=== PATIENT | male | born 1985 | race Caucasian/White ===

== ENCOUNTER 2021-03-20 15:16 | Inpatient (IN) | payer OTHER ==
[2021-03-20 18:06] LABS: Basophils # (A) 0.1 k/uL (0-0.2); Basophils % (A) 1 %; Eosinophils # (A) 0.2 k/uL (0-0.7); Eosinophils % (A) 2 %; HCT 45.9 % (39.0-53.0); HGB 15.5 gm/dL (13.0-17.5); Lymphocytes # (A) 2.1 k/uL (1.0-4.8); Lymphocytes % (A) 16 %; MCH 29.9 pg (25.0-35.0); MCHC 33.7 g/dL (31.0-37.0); MCV 88.7 fL (80.0-100.0); Mean Platelet Volume 7.7; Monocytes # (A) 0.7 k/uL (0-1.0); Monocytes % (A) 6 %; Neutrophils # (A) 9.7 k/uL (1.3-7.7); Neutrophils % (A) 74 %; Platelet Count 283 k/uL (150-450); RBC 5.17 m/uL (4.30-5.90); RDW 12.9 % (11.5-15.5)
[2021-03-20 18:13] LABS: ALT 89 U/L (4-49); AST 70 U/L (17-59); African American GFR (CKD) >90 (>60 ml/min/1.73 sqM); Albumin 3.8 g/dL (3.5-5.0); Alkaline Phosphatase 68 U/L (38-126); Anion Gap 11 mmol/L; Blood Urea Nitrogen 19 mg/dL (9-20); Calcium 8.9 mg/dL (8.4-10.2); Carbon Dioxide 23 mmol/L (22-30); Chloride 103 mmol/L (98-107); Glucose 135 mg/dL (74-99); Non-African American GFR(CKD) >90 (>60 ml/min/1.73 sqM); Potassium 4.3 mmol/L (3.5-5.1); Sodium 137 mmol/L (137-145); Total Bilirubin 0.7 mg/dL (0.2-1.3); Total Protein 6.5 g/dL (6.3-8.2)
[2021-03-20 18:31] LABS: Partial Thromboplastin Time 22.1 sec (22.0-30.0); Prothrombin Time 10.5 sec (9.0-12.0)
--- NOTE | 2021-03-20 20:14 | ED ---
General Adult HPI - General Chief complaint: Recheck/Abnormal Lab/Rx Stated complaint: Revisit/COVID+ Time Seen by Provider: 03/20/21 19:53 Source: patient Mode of arrival: ambulatory Limitations: no limitations - History of Present Illness Initial comments: Dictation was produced using [employer] dictation software. please excuse any grammatical, word or spelling errors. Chief Complaint: 36-year-old male sent in from primary care physician's office for hypoxia History of Present Illness: Patient is 36-year-old male here reports that 3 weeks ago he was diagnosed with colon. He ended up being admitted to the hospital in [place] for 5 days. He received multiple therapies. His discharge. Today he had his follow-up appointment with his primary care doctor Dr. Navarro. Dr. Navarro evaluated the patient is concerned that patient was still hypoxic. He was short of breath and hypoxic with the level 8780% on room air at home. Patie nt also complaining of left lower extremity pain. Patient denies any chest pain. Denies any fevers. Denies any palpitations. The ROS documented in this emergency department record has been reviewed and confirmed by me. Those systems with pertinent positive or negative responses have been documented in the HPI. All other systems are other negative and/or noncontributory. PHYSICAL EXAM: General Impression: Alert and oriented x3, not in acute distress HEENT: Normocephalic atraumatic, extra-ocular movements intact, pupils equal and reactive to light bilaterally, mucous membranes moist. Cardiovascular: Heart regular rate and rhythm Chest: Able to complete full sentences, no retractions, no tachypnea, lungs clear to auscultation bilaterally Abdomen: abdomen soft, non-tender, non-distended, no organomegaly Musculoskeletal: Pulses present and equal in all extremities, no peripheral edema, no significant swelling of the left mid calf. Compared to the right, mild left calf tenderness to palpation Motor: no focal deficits noted Neurological: CN II-XII grossly intact, no focal motor or sensory deficits noted Skin: Intact with no visualized rashes Psych: Normal affect and mood ED course: 36-year-old male presents to the emergency department from primary care physician's office for hypoxia. Patient required inpatient admission for coronavirus 3 weeks ago. Vital signs upon arrival shows temperature 100F, heart rate 120 cumbersome vital signs within acceptable limits. Is 94% on room air. Patient does not appear dyspneic.Laboratory evaluation obtained. Leukocytosis of 13.0. Coag panel is unremarkable. D-dimer is 1.44. Metabolic panel shows slightly elevated liver enzymes. coronavirus positive. Venous Doppler negative for DVT. Chest x-ray shows multifocal pneumonia. CT shows pneumonia and right-sided pulmonary embolisms. Patient started heparin given Zithromax. Patient be admitted with consultation to pulmonology. Patient's vital signs are stable. Is not hypotensive. Troponin is negative. Patient still tachycardic but not showing any signs of submassive PE. His blood pressure is normal. Reevaluated at bedside 11 PM vomited stable medical condition. Does not appear dyspneic. He is not hypoxic. Patient be admitted to Dr. Navarro with consultation to pulmonology. Patient started on heparin. Patient has elevated white count with concerns of atypical bacterial infection. Certain azithromycin. He is also given Decadron for Covid. EKG interpretation: Ventricular rate 123, sinus tachycardia,. Interval 134, QRS 82, QTC 475. No AR prolongation, no QTC prolongation, no ST or T-wave changes noted.. Overall, this EKG is unremarkable - Related Data Home Medications Medication Instructions Recorded Confirmed Albuterol Sulfate [Proair Hfa] 2 puff INHALATION RT-QID PRN 03/20/21 03/20/21 Ascorbic Acid [Vitamin C] 1,000 mg PO DAILY 03/20/21 03/20/21 Cholecalciferol (Vitamin D3) 125 mcg PO DAILY 03/20/21 03/20/21 [Vitamin D3 (125 MCG = 5,000 IU)] Vitamin B Complex 1 cap PO DAILY 03/20/21 03/20/21 Zinc 50 mg PO DAILY 03/20/21 03/20/21 Allergies Allergy/AdvReac Type Severity Reaction Status Date / Time No Known Allergies Allergy Verified 03/20/21 22:04 Review of Systems ROS Statement: Those systems with pertinent positive or pertinent negative responses have been documented in the HPI. ROS Other: All systems not noted in ROS Statement are negative. Past Medical History Additional Past Medical History / Comment(s): Covid, History of Any Multi-Drug Resistant Organisms: None Reported Past Surgical History: No Surgical Hx Reported Past Psychological History: No Psychological Hx Reported Smoking Status: Never smoker Past Alcohol Use History: Occasional Past Drug Use History: Marijuana General Exam Limitations: no limitations Course Vital Signs 03/20/21 16:50 Temperature 100 F H Pulse Rate 120 H Respiratory 22 Rate Blood Pressure 120/80 O2 Sat by Pulse 94 L Oximetry Medical Decision Making - Lab Data Result diagrams: 03/20/21 17:56 03/20/21 17:56 Lab Results 03/20/21 03/20/21 03/20/21 Range/Units 17:56 17:56 17:56 WBC 13.0 H (3.8-10.6) k/uL RBC 5.17 (4.30-5.90) m/uL Hgb 15.5 (13.0-17.5) gm/dL Hct 45.9 (39.0-53.0) % MCV 88.7 (80.0-100.0) fL MCH 29.9 (25.0-35.0) pg MCHC 33.7 (31.0-37.0) g/dL RDW 12.9 (11.5-15.5) % Plt Count 283 (150-450) k/uL MPV 7.7 Neutrophils % 74 % Lymphocytes % 16 % Monocytes % 6 % Eosinophils % 2 % Basophils % 1 % Neutrophils # 9.7 H (1.3-7.7) k/uL Lymphocytes # 2.1 (1.0-4.8) k/uL Monocytes # 0.7 (0-1.0) k/uL Eosinophils # 0.2 (0-0.7) k/uL Basophils # 0.1 (0-0.2) k/uL PT 10.5 (9.0-12.0) sec INR 1.0 (<1.2) APTT 22.1 (22.0-30.0) sec D-Dimer (<0.60) mg/L FEU Sodium 137 (137-145) mmol/L Potassium 4.3 (3.5-5.1) mmol/L Chloride 103 (98-107) mmol/L Carbon Dioxide 23 (22-30) mmol/L Anion Gap 11 mmol/L BUN 19 (9-20) mg/dL Creatinine 1.06 (0.66-1.25) mg/dL Est GFR (CKD-EPI)AfAm >90 (>60 ml/min/1.73 sqM) Est GFR (CKD-EPI)NonAf >90 (>60 ml/min/1.73 sqM) Glucose 135 H (74-99) mg/dL Calcium 8.9 (8.4-10.2) mg/dL Total Bilirubin 0.7 (0.2-1.3) mg/dL AST 70 H (17-59) U/L ALT 89 H (4-49) U/L Alkaline Phosphatase 68 (38-126) U/L Troponin I (0.000-0.034) ng/mL Total Protein 6.5 (6.3-8.2) g/dL Albumin 3.8 (3.5-5.0) g/dL Influenza Type A (PCR) (Not Detectd) Influenza Type B (PCR) (Not Detectd) RSV (PCR) (Not Detectd) SARS-CoV-2 (PCR) (Not Detectd) 03/20/21 03/20/21 03/20/21 Range/Units 17:56 19:54 21:54 WBC (3.8-10.6) k/uL RBC (4.30-5.90) m/uL Hgb (13.0-17.5) gm/dL Hct (39.0-53.0) % MCV (80.0-100.0) fL MCH (25.0-35.0) pg MCHC (31.0-37.0) g/dL RDW (11.5-15.5) % Plt Count (150-450) k/uL MPV Neutrophils % % Lymphocytes % % Monocytes % % Eosinophils % % Basophils % % Neutrophils # (1.3-7.7) k/uL Lymphocytes # (1.0-4.8) k/uL Monocytes # (0-1.0) k/uL Eosinophils # (0-0.7) k/uL Basophils # (0-0.2) k/uL PT (9.0-12.0) sec INR (<1.2) APTT (22.0-30.0) sec D-Dimer 1.44 H (<0.60) mg/L FEU Sodium (137-145) mmol/L Potassium (3.5-5.1) mmol/L Chloride (98-107) mmol/L Carbon Dioxide (22-30) mmol/L Anion Gap mmol/L BUN (9-20) mg/dL Creatinine (0.66-1.25) mg/dL Est GFR (CKD-EPI)AfAm (>60 ml/min/1.73 sqM) Est GFR (CKD-EPI)NonAf (>60 ml/min/1.73 sqM) Glucose (74-99) mg/dL Calcium (8.4-10.2) mg/dL Total Bilirubin (0.2-1.3) mg/dL AST (17-59) U/L ALT (4-49) U/L Alkaline Phosphatase (38-126) U/L Troponin I <0.012 (0.000-0.034) ng/mL Total Protein (6.3-8.2) g/dL Albumin (3.5-5.0) g/dL Influenza Type A (PCR) Not Detected (Not Detectd) Influenza Type B (PCR) Not Detected (Not Detectd) RSV (PCR) Not Detected (Not Detectd) SARS-CoV-2 (PCR) Detected A (Not Detectd) Critical Care Time Critical Care Time: Yes Total Critical Care Time: 33 Disposition Clinical Impression: COVID-19, Pulmonary embolism Disposition: ADMITTED IP TO THIS [facility] Condition: Fair Referrals: Barry Navarro MD [Primary Care Provider] - 1-2 days
--- NOTE | 2021-03-20 21:11 | XR ---
EXAMINATION TYPE: XR chest 1V portable DATE OF EXAM: 03/20/2021 COMPARISON: NONE HISTORY: Difficulty breathing. TECHNIQUE: Single frontal view of the chest is obtained. FINDINGS: Cardiomediastinal silhouette and pulmonary vasculature is within normal limits. There is reticular and patchy opacity bilaterally. No effusion or pneumothorax. IMPRESSION: Multifocal pneumonia. Edema less likely.
--- NOTE | 2021-03-20 21:26 | US ---
EXAMINATION TYPE: US venous doppler duplex LE RT DATE OF EXAM: 03/20/2021 8:57 PM COMPARISON: NONE CLINICAL HISTORY: calf swelling, suspect DVT. SIDE PERFORMED: Right TECHNIQUE: The lower extremity deep venous system is examined utilizing real time linear array sonog wayne with graded compression, doppler sonography and color-flow sonography. VESSELS IMAGED: Common Femoral Vein Deep Femoral Vein Greater Saphenous Vein * Femoral Vein Popliteal Vein Small Saphenous Vein * Proximal Calf Veins (* superficial vessels) Right Leg: Negative for DVT IMPRESSION: 1. No evidence of deep vein thrombosis in the right leg. 2. Grayscale, color doppler, spectral doppler imaging performed of the deep veins of the lower extre mities. There is normal flow, compressibility, vascular waveforms.
[2021-03-20] MEDS ORDERED: HEPARIN SODIUM 1,000 UN/ML (10ML VL) IV PRN (22:41)
[2021-03-20] MEDS ORDERED: HEPARIN SODIUM 1,000 UN/ML (10ML VL) IV ONE (22:41)
[2021-03-20] MEDS ORDERED: NALOXONE 0.4 MG/ML 1 ML VIAL IV PRN (22:46)
[2021-03-20] MEDS ORDERED: ONDANSETRON 4 MG/2 ML VIAL IVP PRN (22:46)
[2021-03-20] MEDS ORDERED: ACETAMINOPHEN TAB 325 MG TAB PO PRN (22:46)
[2021-03-20] MEDS ORDERED: DEXAMETHASONE SOD PHOSPHATE 10 MG/ML 1 ML VIAL IV STA (22:48)
[2021-03-20] MEDS ORDERED: AZITHROMYCIN 500 MG in SODIUM CHLORIDE 0.9% 250 ML IVPB STA (22:54)
--- NOTE | 2021-03-20 22:57 | CT ---
EXAMINATION TYPE: CT angio chest DATE OF EXAM: 03/20/2021 COMPARISON: None HISTORY: R/O PE CT DLP: 592.20 mGycm Automated exposure control for dose reduction was used. CONTRAST: Performed with IV Contrast, patient injected with 60 mL of Isovue 370. Images obtained from the thoracic inlet to the diaphragm with IV contrast. There are 3-D post process ed images. There is some patchy groundglass interstitial infiltrate throughout both lungs. Heart size is normal. There is no pericardial effusion. There is a few paratracheal lymph nodes measuring up to 1 cm. Ther e are no hilar masses. There are filling defects in the right pulmonary artery involving the right upper lobe and right lowe r lobe branches. I see no filling defect in the left pulmonary artery. Thoracic aorta is intact. There is no aneurysm or dissection. The ascending aorta measures 3.5 cm. Th e thoracic spine is intact. There is no compression fracture. Sternum is intact. There is some fatty infiltration of the liver. Spleen is enlarged and measures 15 cm. IMPRESSION: There are multiple emboli in the right upper lobe and right lower lobe pulmonary artery. Patchy bilateral pulmonary interstitial pneumonia. Mild splenomegaly. Fatty infiltration of the liver. This exam was discussed with Dr. Wyatt at 11:00 PM.
[2021-03-21] MEDS: HEPARIN SOD,PORK IN 0.45% NACL 25,000 UNIT in 0.45% NACL 1 250ML.BAG IV SCH ×3 (00:12→22:44)
[2021-03-21] MEDS: SODIUM CHLORIDE 0.9% 1,000 ML IV SCH ×2 (08:46→22:52)
[2021-03-21 11:01] LABS: Basophils # (A) 0.1 k/uL (0-0.2); Basophils % (A) 1 %; Eosinophils % (A) 0 %; HCT 43.7 % (39.0-53.0); HGB 14.6 gm/dL (13.0-17.5); Lymphocytes # (A) 0.9 k/uL (1.0-4.8); Lymphocytes % (A) 9 %; MCH 30.6 pg (25.0-35.0); MCHC 33.5 g/dL (31.0-37.0); MCV 91.4 fL (80.0-100.0); Monocytes # (A) 0.2 k/uL (0-1.0); Monocytes % (A) 2 %; Neutrophils # (A) 8.4 k/uL (1.3-7.7); Neutrophils % (A) 87 %; Platelet Count 242 k/uL (150-450); RBC 4.78 m/uL (4.30-5.90); RDW 12.8 % (11.5-15.5); WBC 9.7 k/uL (3.8-10.6)
[2021-03-21 11:24] LABS: AST 53 U/L (17-59); African American GFR (CKD) >90 (>60 ml/min/1.73 sqM); Albumin 3.6 g/dL (3.5-5.0); Alkaline Phosphatase 108 U/L (38-126); Anion Gap 14 mmol/L; Blood Urea Nitrogen 19 mg/dL (9-20); Calcium 8.8 mg/dL (8.4-10.2); Carbon Dioxide 18 mmol/L (22-30); Chloride 103 mmol/L (98-107); Glucose 355 mg/dL (74-99); Non-African American GFR(CKD) >90 (>60 ml/min/1.73 sqM); Potassium 5.1 mmol/L (3.5-5.1); Sodium 135 mmol/L (137-145); Total Bilirubin 0.5 mg/dL (0.2-1.3); Total Protein 6.3 g/dL (6.3-8.2)
[2021-03-21 11:42] LABS: ALT 86 U/L (4-49)
--- NOTE | 2021-03-21 12:01 | P.HPIM ---
History of Present Illness H&P Date: 03/21/21 Chief Complaint: Pulmonary embolism/COVID-19 HISTORY OF PRESENT ILLNESS: This is a 36-year-old male with no primary medical history he was hospitalized in [facility] for COVID-19 pneumonia and he was discharged on 04/11/2021 he was supposed to go back to work at [employer] however he showed up to my office yesterday in the afternoon for a clearance to go back to work hopefully on Tuesday however the patient was hypotensive extremely short of breath tachycardic twelve-lead EKG my office showed sinus tachycardia with hyperacute T waves in the anterior leads, his oxygen saturation was around 88% on room air, got worse with activity to 85%, patient was directed to the emergency department at [facility] I spoke with the ER physician alerted him to the patient condition and he is likely to have a pulmonary embolism due to his recent COVID-19 infection patient was seen in the ER 4 hours later and he had a twelve-lead EKG as well as laboratory evaluation and a CTA of the chest that was positive for multiple pulmonary emboli in the right upper lobes and the lower lobes, patient was started on heparin drip, he was admitted to the hospital for evaluation bipolar medicine, echogram was obtained for evaluation of fractured restrained pattern, patient continues to be positive for COVID-19, he was placed in droplet precautions with eye protection, patient was started also on vitamin D 1000 units once every day, vitamin C 500 mg orally twice every day and 6 sulfate 220 mg orally once every day was also started on Decadron 6 but gram IV push every day along with IV anabiotic in the form of Rocephin 1 g IV piggyback every 24 hours and Zithromax 500 mg IV piggyback every 24 hours. REVIEW OF SYSTEMS: Constitutional: No documented fever, no chills, no night sweats. No weight change. positive for weakness, fatigue or lethargy. No daytime sleepiness. HEENT: No headache. No blurred vision or double vision, no loss of vision. No loss of Hearing, no ringing in the ears, no dizziness. No nasal drainage or congestion. No epistaxis. No sore throat. Lungs: Positive for shortness of breath, occasional cough, no sputum production. No wheezing. Reports dyspnea with activity. Cardiovascular: No chest pain, no lower extremity edema. positive for palpitations. No paroxysmal nocturnal dyspnea. No orthopnea. positive for lightheadedness and for dizziness. No syncopal episodes. Abdominal: Reports abdominal pain. No nausea, vomiting. No diarrhea. No constipation. No bloody or tarry stools reports loss of appetite. Genitourinary: No dysuria, increased frequency, urgency. No urinary retention. Musculoskeletal: positive for myalgia in the right leg No muscle weakness, no gait dysfunction, no frequent falls. No back pain. No neck pain. Integumentary: No wounds, no lesions. No rash or pruritus. No unusual bruising . No change in hair or nails. Neurologic: No aphasia. No facial droop. No change in mentation. No head injury. No headache. No paralysis. No paresthesia. Psychiatric: No depression. No anxiety. No mood swings. Endocrine: No abnormal blood sugars. No weight change. PAST MEDICAL HISTORY: COVID-19. Sinus tachycardia. Dyspnea on exertion. Code pneumonia. PAST SURGICAL HISTORY: None. SOCIAL HISTORY: Patient used to smoke about pack every day he smoked for about 5 years and he quit he occasionally vape, patient workes at [employer]. FAMILY HISTORY: Mother 61-year-old with history of ovarian tumor status post total abdominal history bilateral salpingo-ophorrctomy as well as significant spondylosis of the lumbar spine and hypertension and hypertensive cardiovascular disease father is 61-year-old with history of diabetes mellitus type 2 hypertension and hyperlipidemia , he is a pharmacist, patient has one younger sister 30-year-old with a history of ovarian tumor status post surgery and try to get in vitro fertilization PHYSICAL EXAMINATION: General: This is a 36-year-old male who is laying down in bed in no respiratory distress. HEENT: Head is atraumatic, normocephalic, pupils were equal round reactive to light and recommendation, extraocular muscle movement were intact, sclera nonicteric, conjunctivae were pale, mucous membranes of the mouth are somewhat dry. Neck: Supple, no JVP, normal carotid upstroke bilaterally, no lymphadenopathy. Chest: Decreased breath sounds at the bases, few rhonchi, no expiratory wheezes, no chest wall tenderness, no intercostal retractions. Heart: First heart sound is normal, second heart sounds normal tachycardic no gallop or murmur. Abdomen: Soft, nontender, nondistended, positive bowel sounds. Extremities: There is no edema no calf tenderness DP +2 bilaterally. Neurologic examination: Patient is awake alert and oriented X 3 , cranial nerves II-12 appear grossly intact, muscle power were 5 out of 5 in upper extremities and 5 out of 5 in bilateral lower extremities, deep tendon reflexes normal bilaterally. ASSESSMENT AND PLAN: 1. COVID-19 pneumonia. Continue patient on Rocephin 1 g IV piggyback every 24 hours as well as Zithromax 500 mg IV piggyback every 24 hours, continue patient on Decadron 6. Coumadin for several 6 hours, vitamin C 500 mg orally twice every day, vitamin D 1000 units once every day, 6 sulfate 220 mg every day, continue with Ventolin HFA 2 puffs ablation every 4 hours as needed, Pulmicort consultation, droplet precautions with eye protection. 2. Right upper lobe and lower lobe pulmonary emboli. Likely related to COVID- 19 pneumonia continue heparin drip for now, continue patient on oxygen as needed, use incentive spirometer, pulmonary consultation, echocardiogram was done and results of pending at the time of patient. Patient be transitioned to Xarelto in 48 hours. 3. Sinus tachycardia likely related to pulmonary emboli and COVID-19 pneumonia. Continue to treat underlying condition. 4. Right lower extremity pain below suffered was negative for DVT, likely musculoskeletal continue to apply heat pads. 5. Leukocytosis. Repeat CBC the next 24 hours per 6. DVT prophylaxis. Continue patient on heparin drip. 7. GI Prophylaxis continue patient on Protonix 40 mg orally once every day. 8. admit to inpatient. Estimated length of stay 2 midnights. 9. Patient is full code. Past Medical History Additional Past Medical History / Comment(s): Covid, History of Any Multi-Drug Resistant Organisms: None Reported Past Surgical History: No Surgical Hx Reported Past Psychological History: No Psychological Hx Reported Smoking Status: Never smoker Past Alcohol Use History: Occasional Past Drug Use History: Marijuana Medications and Allergies Home Medications Medication Instructions Recorded Confirmed Type Albuterol Sulfate [Proair Hfa] 2 puff INHALATION RT-QID PRN 03/20/21 03/20/21 History Ascorbic Acid [Vitamin C] 1,000 mg PO DAILY 03/20/21 03/20/21 History Cholecalciferol (Vitamin D3) 125 mcg PO DAILY 03/20/21 03/20/21 History [Vitamin D3 (125 MCG = 5,000 IU)] Vitamin B Complex 1 cap PO DAILY 03/20/21 03/20/21 History Zinc 50 mg PO DAILY 03/20/21 03/20/21 History Allergies Allergy/AdvReac Type Severity Reaction Status Date / Time No Known Allergies Allergy Verified 03/20/21 22:04 Physical Exam Vitals: Vital Signs Temp Pulse Resp BP Pulse Ox 03/21/21 09:29 98.3 F 03/21/21 09:25 90 18 128/83 95 03/21/21 02:00 110 H 18 157/87 95 03/20/21 23:00 108 H 18 121/72 95 03/20/21 22:00 108 H 18 109/67 94 L 03/20/21 16:50 100 F H 120 H 22 120/80 94 L Intake and Output 03/20/21 03/21/21 03/21/21 22:59 06:59 14:59 Intake Total 200.415 Balance 200.415 Intake: Intake, IV Titration 200.415 Amount Heparin Sod,Pork in 0.45% 200.415 NaCl 25,000 unit In 0.45 % NaCl 1 250ml.bag @ 18 UNITS/KG/HR 21.473 mls/hr IV .[id number] [facility] Rx#: [id number] Other: Weight 119.295 kg Results CBC & Chem 7: 03/21/21 10:31 03/21/21 10:31 Labs: Abnormal Lab Results - Last 24 Hours (Table) 03/20/21 03/20/21 03/20/21 Range/Units 17:56 17:56 19:54 WBC 13.0 H (3.8-10.6) k/uL Neutrophils # 9.7 H (1.3-7.7) k/uL APTT (22.0-30.0) sec D-Dimer (<0.60) mg/L FEU Glucose 135 H (74-99) mg/dL AST 70 H (17-59) U/L ALT 89 H (4-49) U/L SARS-CoV-2 (PCR) Detected A (Not Detectd) 03/20/21 03/21/21 Range/Units 21:54 05:45 WBC (3.8-10.6) k/uL Neutrophils # (1.3-7.7) k/uL APTT 45.1 H (22.0-30.0) sec D-Dimer 1.44 H (<0.60) mg/L FEU Glucose (74-99) mg/dL AST (17-59) U/L ALT (4-49) U/L SARS-CoV-2 (PCR) (Not Detectd)
--- NOTE | 2021-03-21 12:34 | P.CNPUL ---
History of Present Illness Consult date: 03/21/21 Requesting physician: Barry Navarro Reason for consult: abnormal CXR/CT Chief complaint: Hypoxemia History of present illness: This is a very pleasant 36-year-old male patient who follows with Dr. Navarro is his primary care provider. No significant medical history. He is a nonsmoker. Occasional marijuana use. Occasional alcohol use. He had developed symptoms of COVID-19 back on 03/01/2021 and tested positive on 03/03/2021. He initially started with sinus congestion and ALLERGIES which developed into to fatigue and eventually fevers nausea diarrhea. He ended up in [facility] where he was working for 5 days. He was initially given monoclonal antibodies, he was also given Remdesivir for 5 days. Subsequently discharged home. He was seen by his PCP yesterday who found the patient hypoxic with O2 saturations in the 80s yesterday. He also had complaints of right lower extremity edema. He was sent to the ER for the same. Doppler was negative for DVT. Chest x-ray showed evid ence of multifocal pneumonia. CT angiogram did reveal evidence of multiple emboli right upper lobe and right lower lobe pulmonary arteries. There is patchy bilateral interstitial pneumonia. Mild splenomegaly. Fatty infiltration of the liver. White count 9.7. Hemoglobin 14.6. Platelet count 242. Lymphocytes 0.9. Sodium 135. Potassium 5.1. Bicarb 18. Creatinine 0.74. D- dimer 1.44. AST 53, ALT 86. Cintron virus positive. He was initiated on a heparin drip. He is seen today in consultation in the emergency room. He is currently sitting up in bed. Awake and alert in no acute distress. No worsening shortness of breath cough or congestion. No chest pain. No hemoptysis. Maintaining O2 saturations in the mid 90s on room air. He's afebrile. Hemodynamically stable. Review of Systems REVIEW OF SYSTEMS: CONSTITUTIONAL: Denies any recent significant weight loss or weight gain. EYES: Denies change in vision. EARS, NOSE, MOUTH, THROAT: Denies headaches, denies sore throat. CARDIOVASCULAR: Denies chest pain, palpitations or syncopal episodes. RESPIRATORY: Denies shortness of breath, cough, congestion or hemoptysis. GASTROINTESTINAL: Denies change in appetite, denies abdominal pain GENITOURINARY: Denies hematuria, denies infections. MUSKULOSKELETAL: Swelling of the right lower extremity.. INTEGUMENTARY: Denies rash, denies eczema. NEUROLOGICAL: Denies recent memory loss, no recent seizure activity. PSYCHIATRIC: Denies anxiety, denies depression. HEMATOLOGIC/LYMPHATIC: Denies anemia, denies enlarged lymph nodes. Past Medical History Additional Past Medical History / Comment(s): Covid, History of Any Multi-Drug Resistant Organisms: None Reported Past Surgical History: No Surgical Hx Reported Past Psychological History: No Psychological Hx Reported Smoking Status: Never smoker Past Alcohol Use History: Occasional Past Drug Use History: Marijuana Medications and Allergies Home Medications Medication Instructions Recorded Confirmed Type Albuterol Sulfate [Proair Hfa] 2 puff INHALATION RT-QID PRN 03/20/21 03/20/21 History Ascorbic Acid [Vitamin C] 1,000 mg PO DAILY 03/20/21 03/20/21 History Cholecalciferol (Vitamin D3) 125 mcg PO DAILY 03/20/21 03/20/21 History [Vitamin D3 (125 MCG = 5,000 IU)] Vitamin B Complex 1 cap PO DAILY 03/20/21 03/20/21 History Zinc 50 mg PO DAILY 03/20/21 03/20/21 History Allergies Allergy/AdvReac Type Severity Reaction Status Date / Time No Known Allergies Allergy Verified 03/20/21 22:04 Physical Exam Vitals: Vital Signs Temp Pulse Resp BP Pulse Ox 03/21/21 09:29 98.3 F 03/21/21 09:25 90 18 128/83 95 03/21/21 02:00 110 H 18 157/87 95 03/20/21 23:00 108 H 18 121/72 95 03/20/21 22:00 108 H 18 109/67 94 L 03/20/21 16:50 100 F H 120 H 22 120/80 94 L Intake and Output 03/20/21 03/21/21 03/21/21 22:59 06:59 14:59 Intake Total 200.415 Balance 200.415 Intake: Intake, IV Titration 200.415 Amount Heparin Sod,Pork in 0.45% 200.415 NaCl 25,000 unit In 0.45 % NaCl 1 250ml.bag @ 18 UNITS/KG/HR 21.473 mls/hr IV .[id number] [facility] Rx#: [id number] Other: Weight 119.295 kg GENERAL EXAM: Alert, pleasant 36-year-old gentleman, on room air, comfortable in no apparent distress. HEAD: Normocephalic. EYES: Normal reaction of pupils, equal size. NOSE: Clear with pink turbinates. THROAT: No erythema or exudates. NECK: No masses, no JVD. CHEST: No chest wall deformity. LUNGS: Equal air entry with faint crackles in posterior bases. CVS: S1 and S2 normal with no audible murmur, regular rhythm. ABDOMEN: No hepatosplenomegaly, normal bowel sounds, no guarding or rigidity. SPINE: No scoliosis or deformity SKIN: No rashes CENTRAL NERVOUS SYSTEM: No focal deficits, tone is normal in all 4 extremities. EXTREMITIES: There is no peripheral edema. No clubbing, no cyanosis. Peripheral pulses are intact. Results - Laboratory Findings CBC and BMP: 03/21/21 10:31 03/21/21 10:31 PT/INR, D-dimer PT 10.5 sec (9.0-12.0) 03/20/21 17:56 INR 1.0 (<1.2) 03/20/21 17:56 D-Dimer 1.44 mg/L FEU (<0.60) H 03/20/21 21:54 Abnormal lab findings: Abnormal Labs 03/20/21 03/20/21 03/20/21 17:56 17:56 19:54 WBC 13.0 H Neutrophils # 9.7 H Lymphocytes # APTT D-Dimer Sodium Carbon Dioxide Glucose 135 H AST 70 H ALT 89 H SARS-CoV-2 (PCR) Detected A 03/20/21 03/21/21 03/21/21 21:54 05:45 10:31 WBC Neutrophils # 8.4 H Lymphocytes # 0.9 L APTT 45.1 H D-Dimer 1.44 H Sodium Carbon Dioxide Glucose AST ALT SARS-CoV-2 (PCR) 03/21/21 10:31 WBC Neutrophils # Lymphocytes # APTT D-Dimer Sodium 135 L Carbon Dioxide 18 L Glucose 355 H AST ALT 86 H SARS-CoV-2 (PCR) - Diagnostic Findings Chest x-ray: image reviewed CT scan - chest: image reviewed U/S of Legs: image reviewed Assessment and Plan Assessment: 1 Acute right lung pulmonary emboli secondary to recent COVID-19 infection. Initial diagnosis 03/03/2021. 2 Residual patchy bilateral pneumonia secondary to COVID-19 infection, treated with monoclonal antibodies then Remdesivir in [facility] for 5 days 3 History of marijuana use 4 Former smoker. Plan: The patient was seen and evaluated by Dr. Shen Chest x-ray, Dopplers, computed tomography scan reviewed Echocardiogram pending Continue heparin drip for now, plan to transition to oral anticoagulant Initiated on Decadron and antibiotics per medicine Continue bronchodilators as needed Currently on room air We will continue to follow and make further recommendations based on his clinical status I, the cosigning physician, performed a history & physical examination of the patient. Lungs sounds faint crackles in posterior bases. Maintaining good O2 saturations in the 90s on room air. I discussed the assessment and plan of care with my nurse practitioner, Miguelina Mcqueen. I attest to the above consultation as dictated by her. Time with Patient: Greater than 30
--- NOTE | 2021-03-21 12:59 | P.GSCN ---
History of Present Illness Consult date: 03/21/21 History of present illness: Colten is a 36-year-old male in today after being sent in by his primary care physician. He was being seen in the office regarding possibility of being released back to work as far as his breathing and at that point his primary care physician was suspicious and sentiment to the hospital for further workup and evaluation. He was found to have a pulmonary embolism and was tested positive for Covid. He denies any history of past DVT nor any family history there is aware of. He denies any surgical interventions or recent travel.. Overall he is feeling quite well Review of Systems 14 point review of systems performed. Pertinent positives and negatives per the HPI Past Medical History Additional Past Medical History / Comment(s): Covid, History of Any Multi-Drug Resistant Organisms: None Reported Past Surgical History: No Surgical Hx Reported Past Psychological History: No Psychological Hx Reported Smoking Status: Never smoker Past Alcohol Use History: Occasional Past Drug Use History: Marijuana Medications and Allergies Home Medications Medication Instructions Recorded Confirmed Type Albuterol Sulfate [Proair Hfa] 2 puff INHALATION RT-QID PRN 03/20/21 03/20/21 History Ascorbic Acid [Vitamin C] 1,000 mg PO DAILY 03/20/21 03/20/21 History Cholecalciferol (Vitamin D3) 125 mcg PO DAILY 03/20/21 03/20/21 History [Vitamin D3 (125 MCG = 5,000 IU)] Vitamin B Complex 1 cap PO DAILY 03/20/21 03/20/21 History Zinc 50 mg PO DAILY 03/20/21 03/20/21 History Allergies Allergy/AdvReac Type Severity Reaction Status Date / Time No Known Allergies Allergy Verified 03/20/21 22:04 Surgical - Exam Vital Signs Temp Pulse Resp BP Pulse Ox 100 F H 120 H 22 120/80 94 L 03/20/21 16:50 03/20/21 16:50 03/20/21 16:50 03/20/21 16:50 03/20/21 16:50 Gen. is a pleasant and cooperative male in no acute distress. HEENT is normocephalic, atraumatic, extraction motion intact. Heart appears regular, mild tachycardia. Lungs are diminished but clear. No oxygen breathing room air comfortably. No apparent respiratory distress. Abdomen is soft, nontender nond istended. Extremity show no clubbing, cyanosis or edema. Normal mood and affect. Cranial nerves II through XII grossly intact Results CT angiogram of the chest is reviewed and discussed with the patient - Labs 03/21/21 10:31 03/21/21 10:31 Abnormal Lab Results - Last 24 Hours (Table) 03/20/21 03/20/21 03/20/21 Range/Units 17:56 17:56 19:54 WBC 13.0 H (3.8-10.6) k/uL Neutrophils # 9.7 H (1.3-7.7) k/uL Lymphocytes # (1.0-4.8) k/uL APTT (22.0-30.0) sec D-Dimer (<0.60) mg/L FEU Sodium (137-145) mmol/L Carbon Dioxide (22-30) mmol/L Glucose 135 H (74-99) mg/dL AST 70 H (17-59) U/L ALT 89 H (4-49) U/L SARS-CoV-2 (PCR) Detected A (Not Detectd) 03/20/21 03/21/21 03/21/21 Range/Units 21:54 05:45 10:31 WBC (3.8-10.6) k/uL Neutrophils # 8.4 H (1.3-7.7) k/uL Lymphocytes # 0.9 L (1.0-4.8) k/uL APTT 45.1 H (22.0-30.0) sec D-Dimer 1.44 H (<0.60) mg/L FEU Sodium (137-145) mmol/L Carbon Dioxide (22-30) mmol/L Glucose (74-99) mg/dL AST (17-59) U/L ALT (4-49) U/L SARS-CoV-2 (PCR) (Not Detectd) 03/21/21 Range/Units 10:31 WBC (3.8-10.6) k/uL Neutrophils # (1.3-7.7) k/uL Lymphocytes # (1.0-4.8) k/uL APTT (22.0-30.0) sec D-Dimer (<0.60) mg/L FEU Sodium 135 L (137-145) mmol/L Carbon Dioxide 18 L (22-30) mmol/L Glucose 355 H (74-99) mg/dL AST (17-59) U/L ALT 86 H (4-49) U/L SARS-CoV-2 (PCR) (Not Detectd) Diabetes panel 03/20/21 03/21/21 Range/Units 17:56 10:31 Sodium 137 135 L (137-145) mmol/L Potassium 4.3 5.1 (3.5-5.1) mmol/L Chloride 103 103 (98-107) mmol/L Carbon Dioxide 23 18 L (22-30) mmol/L BUN 19 19 (9-20) mg/dL Creatinine 1.06 0.74 (0.66-1.25) mg/dL Glucose 135 H 355 H (74-99) mg/dL Calcium 8.9 8.8 (8.4-10.2) mg/dL AST 70 H 53 (17-59) U/L ALT 89 H 86 H (4-49) U/L Alkaline Phosphatase 68 108 (38-126) U/L Total Protein 6.5 6.3 (6.3-8.2) g/dL Albumin 3.8 3.6 (3.5-5.0) g/dL Calcium panel 03/20/21 03/21/21 Range/Units 17:56 10:31 Calcium 8.9 8.8 (8.4-10.2) mg/dL Albumin 3.8 3.6 (3.5-5.0) g/dL Pituitary panel 03/20/21 03/21/21 Range/Units 17:56 10:31 Sodium 137 135 L (137-145) mmol/L Potassium 4.3 5.1 (3.5-5.1) mmol/L Chloride 103 103 (98-107) mmol/L Carbon Dioxide 23 18 L (22-30) mmol/L BUN 19 19 (9-20) mg/dL Creatinine 1.06 0.74 (0.66-1.25) mg/dL Glucose 135 H 355 H (74-99) mg/dL Calcium 8.9 8.8 (8.4-10.2) mg/dL Adrenal panel 03/20/21 03/21/21 Range/Units 17:56 10:31 Sodium 137 135 L (137-145) mmol/L Potassium 4.3 5.1 (3.5-5.1) mmol/L Chloride 103 103 (98-107) mmol/L Carbon Dioxide 23 18 L (22-30) mmol/L BUN 19 19 (9-20) mg/dL Creatinine 1.06 0.74 (0.66-1.25) mg/dL Glucose 135 H 355 H (74-99) mg/dL Calcium 8.9 8.8 (8.4-10.2) mg/dL Total Bilirubin 0.7 0.5 (0.2-1.3) mg/dL AST 70 H 53 (17-59) U/L ALT 89 H 86 H (4-49) U/L Alkaline Phosphatase 68 108 (38-126) U/L Total Protein 6.5 6.3 (6.3-8.2) g/dL Albumin 3.8 3.6 (3.5-5.0) g/dL Assessment and Plan Assessment: Pulmonary embolism Positive COVID-19 Plan: At this point imaging was reviewed as well as the labs. There does not appear to be any elevation of troponins no significant signs of right heart strain on images. Awaiting final echocardiogram. Given patient's overall clinical picture, He remains very comfortable on room AIR without any supplemental oxygen, would doubt any need for intervention for thrombolytics. He is currently on a heparin drip and may be transitioned over to oral anticoagulation. He may follow up as an outpatient but likely would recommend 6 month of anticoagulation, likely due to Covid
--- NOTE | 2021-03-21 15:00 | ECHOF ---
Referral Reason:acute PE, covid MEASUREMENTS -------- HEIGHT: 177.8 cm WEIGHT: 119.3 kg BP: IVSd: 1.2 cm (0.6 - 1.1) LVIDd: 3.8 cm (3.9 - 5.3) LVPWd: 1.6 cm (0.6 - 1.1) EDV(Teich): 61 ml IVSs: 1.9 cm LVIDs: 2.4 cm LVPWs: 2.1 cm %IVS Thck: 56 % ESV(Teich): 20 ml EF(Teich): 68 % %FS: 37 % SV(Teich): 41 ml RVIDd: 2.6 cm (< 3.3) LALs A4C: 4.9 cm LAAs A4C: 14.1 cm LAESV A-L A4C: 34 ml LAESV MOD A4C: 32 ml LALs A2C: 5.0 cm LAAs A2C: 13.4 cm LAESV A-L A2C: 31 ml LAESV MOD A2C: 29 ml LAESV(A-L): 33 ml LAESV Index (A-L): 13.94 ml/m Ao Diam: 3.4 cm (2.0 - 3.7) LA Diam: 3.3 cm (2.7 - 3.8) AV Cusp: 2.0 cm (1.5 - 2.6) EPSS: 0.9 cm MV E John: 0.68 m/s MV DecT: 117 ms MV Dec Win[place]: 5.8 m/s MV A John: 0.75 m/s MV E/A Ratio: 0.90 MV PHT: 34 ms MR Vmax: 1.22 m/s MR maxP.99 mmHg AV Vmax: 1.23 m/s AV maxP.07 mmHg TR Vmax: 1.40 m/s TR maxP.89 mmHg RAP: 5.00 mmHg RVSP: 12.89 mmHg MV EF SLOPE: 98.98 mm/s (70 - 150) MV EXCURSION: 13.19 mm (> 18.000) FINDINGS -------- This was a technically good study. The left ventricular size is normal. There is mild concentric left ventricular hypertrophy. Overa ll left ventricular systolic function is normal with, an EF between 55 - 60 %. The right ventricle is normal in size. The left atrial size is normal. The right atrial size is normal. The aortic valve is trileaflet and appears structurally normal. The mitral valve is normal. There is trace mitral regurgitation. The tricuspid valve appears structurally normal. Trace tricuspid regurgitation present. Right arsen tricular systolic pressure is normal at < 35 mmHg. There is no pulmonic regurgitation present. The aortic root size is normal. IVC Not well visulized. There is no pericardial effusion. CONCLUSIONS -------- 1. The left ventricular size is normal. 2. There is mild concentric left ventricular hypertrophy. 3. Overall left ventricular systolic function is normal with, an EF between 55 - 60 %. 4. There is trace mitral regurgitation. 5. Trace tricuspid regurgitation present. 6. There is no pericardial effusion. TECHNICIAN [employer]: Tanika Cuevas RDCS
[2021-03-21] MEDS: ALBUTEROL HFA INHALER INHALATION SCH ×3 (16:11→21:33)
[2021-03-21] MEDS: ASCORBIC ACID 500 MG TAB PO SCH (20:12)
[2021-03-21 23:19] VITALS: RESP 18
[2021-03-22 05:53] VITALS: TEMP 97.9
[2021-03-22] MEDS: ALBUTEROL HFA INHALER INHALATION SCH ×2 (07:53→11:37)
[2021-03-22] MEDS ORDERED: CHOLECALCIFEROL 25 MCG (1000 IU) TABLET PO SCH (09:00)
[2021-03-22] MEDS ORDERED: DEXAMETHASONE SOD PHOSPHATE 10 MG/ML 1 ML VIAL IV SCH (09:00)
[2021-03-22] MEDS ORDERED: ZINC SULFATE 220 MG CAP PO SCH (09:00)
[2021-03-22 09:47] LABS: Basophils # (A) 0.1 k/uL (0-0.2); Basophils % (A) 1 %; Eosinophils % (A) 0 %; HGB 15.7 gm/dL (13.0-17.5); Lymphocytes # (A) 2.1 k/uL (1.0-4.8); Lymphocytes % (A) 18 %; MCH 30.4 pg (25.0-35.0); MCHC 34.1 g/dL (31.0-37.0); MCV 89.1 fL (80.0-100.0); Mean Platelet Volume 8.4; Monocytes # (A) 0.6 k/uL (0-1.0); Monocytes % (A) 5 %; Neutrophils % (A) 75 %; Platelet Count 277 k/uL (150-450); RBC 5.17 m/uL (4.30-5.90); RDW 13.6 % (11.5-15.5)
[2021-03-22 09:49] LABS: ALT 118 U/L (4-49); AST 95 U/L (17-59); African American GFR (CKD) >90 (>60 ml/min/1.73 sqM); Albumin 3.9 g/dL (3.5-5.0); Alkaline Phosphatase 88 U/L (38-126); Anion Gap 10 mmol/L; Blood Urea Nitrogen 17 mg/dL (9-20); C Reactive Protein 2.4 mg/dL (<1.0); Calcium 8.7 mg/dL (8.4-10.2); Carbon Dioxide 25 mmol/L (22-30); Chloride 103 mmol/L (98-107); Glucose 135 mg/dL (74-99); Non-African American GFR(CKD) >90 (>60 ml/min/1.73 sqM); Potassium 4.3 mmol/L (3.5-5.1); Sodium 138 mmol/L (137-145); Total Bilirubin 0.6 mg/dL (0.2-1.3); Total Protein 6.8 g/dL (6.3-8.2)
--- NOTE | 2021-03-22 09:57 | P.PN ---
Subjective Progress Note Date: 03/22/21 Patient seen and examined. No plans. Resting comfortably Objective - Vital Signs Vital signs: Vital Signs Temp 97.9 F 03/22/21 05:52 Pulse 89 03/22/21 05:52 Resp 18 03/22/21 05:52 BP 125/82 03/22/21 05:52 Pulse Ox 95 03/22/21 05:52 Intake & Output 03/21/21 03/22/21 03/22/21 18:59 06:59 18:59 Intake Total 380.415 250 240 Output Total 2 Balance 380.415 248 240 Weight 119.295 kg 118.5 kg Intake: Intake, IV Titration 200.415 250 Amount Heparin Sod,Pork in 0.45% 200.415 250 NaCl 25,000 unit In 0.45 % NaCl 1 250ml.bag @ 18 UNITS/KG/HR 21.473 mls/hr IV .[id number] [facility] Rx#: [id number] Oral 180 240 Output: Urine 2 Other: # Voids 1 - Exam Gen. wasn't cooperative male in no acute distress. HEENT normal cephalic, atraumatic, etc. he motion intact. Heart appears regular. Lungs are clear bilaterally. Abdomen is soft, obese, nontender. Extremities show no clubbing, cyanosis or edema. Normal mood and affect. Cranial nerves II through XII grossly intact - Labs CBC & Chem 7: 03/22/21 07:59 03/22/21 07:59 Labs: Abnormal Lab Results - Last 24 Hours (Table) 03/21/21 03/21/21 03/22/21 Range/Units 10:31 10:31 07:59 WBC (3.8-10.6) k/uL Neutrophils # 8.4 H (1.3-7.7) k/uL Lymphocytes # 0.9 L (1.0-4.8) k/uL APTT 33.3 H (22.0-30.0) sec Sodium 135 L (137-145) mmol/L Carbon Dioxide 18 L (22-30) mmol/L Glucose 355 H (74-99) mg/dL AST (17-59) U/L ALT 86 H (4-49) U/L C-Reactive Protein (<1.0) mg/dL 03/22/21 03/22/21 Range/Units 07:59 07:59 WBC 12.0 H (3.8-10.6) k/uL Neutrophils # 9.0 H (1.3-7.7) k/uL Lymphocytes # (1.0-4.8) k/uL APTT (22.0-30.0) sec Sodium (137-145) mmol/L Carbon Dioxide (22-30) mmol/L Glucose 135 H (74-99) mg/dL AST 95 H (17-59) U/L ALT 118 H (4-49) U/L C-Reactive Protein 2.4 H (<1.0) mg/dL Assessment and Plan Assessment: Pulmonary embolism Positive COVID-19 Plan: Reviewed imaging. No evidence of right heart strain on any images. At this point from my standpoint, patient can be transitioned to oral anticoagulation and discharged per medicine team.
--- NOTE | 2021-03-22 11:59 | P.PN ---
Subjective Progress Note Date: 03/22/21 HISTORY OF PRESENT ILLNESS: This is a 36-year-old male with no primary medical history he was h ospitalized in [facility] for COVID-19 pneumonia and he was discharged on 04/11/2021 he was supposed to go back to work at [employer] however he showed up to my office yesterday in the afternoon for a clearance to go back to work hopefully on Tuesday however the patient was hypotensive extremely short of breath tachycardic twelve-lead EKG my office showed sinus tachycardia with hyperacute T waves in the anterior leads, his oxygen saturation was around 88% on room air, got worse with activity to 85%, patient was directed to the emergency department at [facility] I spoke with the ER physician alerted him to the patient condition and he is likely to have a pulmonary embolism due to his recent COVID-19 infection patient was seen in the ER 4 hours later and he had a twelve-lead EKG as well as laboratory evaluation and a CTA of the chest that was positive for multiple pulmonary emboli in the right upper lobes and the lower lobes, patient was started on heparin drip, he was admitted to the hospital for evaluation bipolar medicine, echogram was obtained for evaluation of fractured restrained pattern, patient continues to be positive for COVID-19, he was placed in droplet precautions with eye protection, patient was started also on vitamin D 1000 units once every day, vitamin C 500 mg orally twice every day and 6 sulfate 220 mg orally once every day was also started on Decadron 6 but gram IV push every day along with IV antibiotic in the form of Rocephin 1 g IV piggyback every 24 hours and Zithromax 500 mg IV piggyback every 24 hours. 03/22: Patient sitting up in bed in no apparent distress, he denies any chest pain or shortness breath, he has no coughing or hemoptysis at this time, he feels a lot better, he was seen and cleared by pulmonary as well as by vascular surgery. He was switched to oral Eliquis and he is to be discharged from hospital follow-up with me as an outpatient 1 week. REVIEW OF SYSTEMS: Constitutional: No documented fever, no chills, no night sweats. No weight change. positive for weakness, fatigue or lethargy. No daytime sleepiness. HEENT: No headache. No blurred vision or double vision, no loss of vision. No loss of Hearing, no ringing in the ears, no dizziness. No nasal drainage or congestion. No epistaxis. No sore throat. Lungs: Positive for shortness of breath, occasional cough, no sputum production. No wheezing. Reports dyspnea with activity. Cardiovascular: No chest pain, no lower extremity edema. positive for palpitations. No paroxysmal nocturnal dyspnea. No orthopnea. positive for lightheadedness and for dizziness. No syncopal episodes. Abdominal: Reports abdominal pain. No nausea, vomiting. No diarrhea. No constipation. No bloody or tarry stools reports loss of appetite. Genitourinary: No dysuria, increased frequency, urgency. No urinary retention. Musculoskeletal: positive for myalgia in the right leg No muscle weakness, no gait dysfunction, no frequent falls. No back pain. No neck pain. Integumentary: No wounds, no lesions. No rash or pruritus. No unusual bruising. No change in hair or nails. Neurologic: No aphasia. No facial droop. No change in mentation. No head injury. No headache. No paralysis. No paresthesia. Psychiatric: No depression. No anxiety. No mood swings. Endocrine: No abnormal blood sugars. No weight change. PHYSICAL EXAMINATION: General: This is a 36-year-old male who is laying down in bed in no respiratory distress. HEENT: Head is atraumatic, normocephalic, pupils were equal round reactive to light and recommendation, extraocular muscle movement were intact, sclera nonicteric, conjunctivae were pale, mucous membranes of the mouth are somewhat dry. Neck: Supple, no JVP, normal carotid upstroke bilaterally, no lymphadenopathy. Chest: Decreased breath sounds at the bases, few rhonchi, no expiratory wheezes, no chest wall tenderness, no intercostal retractions. Heart: First heart sound is normal, second heart sounds normal tachycardic no gallop or murmur. Abdomen: Soft, nontender, nondistended, positive bowel sounds. Extremities: There is no edema no calf tenderness DP +2 bilaterally. Neurologic examination: Patient is awake alert and oriented X 3 , cranial nerves II-12 appear grossly intact, muscle power were 5 out of 5 in upper extremities and 5 out of 5 in bilateral lower extremities, deep tendon reflexes normal b ilaterally. ASSESSMENT AND PLAN: 1. COVID-19 pneumonia. Discontinue IV antibiotics for the patient on Zithromax 500 mg orally once every 7 days, discontinue IV Decadron, continue vitamin D and vitamin C along with zinc sulfate 220 mg once every day. 2. Right upper lobe and lower lobe pulmonary emboli. Likely related to COVID- 19 discontinue heparin drip after given patient Eliquis 10 mg orally twice every day for the first week followed by 5 mg orally twice every day for the next 6 months. 3. Sinus tachycardia likely related to pulmonary emboli and COVID-19 pneumonia. much better 4. Right lower extremity pain below suffered was negative for DVT, likely musculoskeletal continue to apply heat pads. 5. Leukocytosis. resolved 6 . DVT prophylaxis. on Eliquis 7. GI Prophylaxis continue patient on Protonix 40 mg orally once every day. 8. medically stable for discharge home. Objective - Vital Signs Vital signs: Vital Signs Temp 97.9 F 03/22/21 05:52 Pulse 89 03/22/21 05:52 Resp 18 03/22/21 05:52 BP 125/82 03/22/21 05:52 Pulse Ox 95 03/22/21 05:52 Intake & Output 03/21/21 03/22/21 03/22/21 18:59 06:59 18:59 Intake Total 380.415 250 240 Output Total 2 Balance 380.415 248 240 Weight 119.295 kg 118.5 kg Intake: Intake, IV Titration 200.415 250 Amount Heparin Sod,Pork in 0.45% 200.415 250 NaCl 25,000 unit In 0.45 % NaCl 1 250ml.bag @ 18 UNITS/KG/HR 21.473 mls/hr IV .[id number] [facility] Rx#: [id number] Oral 180 240 Output: Urine 2 Other: # Voids 1 - Labs CBC & Chem 7: 03/22/21 07:59 03/22/21 07:59 Labs: Abnormal Lab Results - Last 24 Hours (Table) 03/21/21 03/21/21 03/22/21 Range/Units 10:31 10:31 07:59 WBC (3.8-10.6) k/uL Neutrophils # 8.4 H (1.3-7.7) k/uL Lymphocytes # 0.9 L (1.0-4.8) k/uL APTT 33.3 H (22.0-30.0) sec Sodium 135 L (137-145) mmol/L Carbon Dioxide 18 L (22-30) mmol/L Glucose 355 H (74-99) mg/dL AST (17-59) U/L ALT 86 H (4-49) U/L C-Reactive Protein (<1.0) mg/dL 03/22/21 03/22/21 Range/Units 07:59 07:59 WBC 12.0 H (3.8-10.6) k/uL Neutrophils # 9.0 H (1.3-7.7) k/uL Lymphocytes # (1.0-4.8) k/uL APTT (22.0-30.0) sec Sodium (137-145) mmol/L Carbon Dioxide (22-30) mmol/L Glucose 135 H (74-99) mg/dL AST 95 H (17-59) U/L ALT 118 H (4-49) U/L C-Reactive Protein 2.4 H (<1.0) mg/dL
--- NOTE | 2021-03-22 12:01 | P.DS ---
Providers Date of admission: 03/20/21 22:46 Expected date of discharge: 03/22/21 Attending physician: Barry Navarro Consults: 03/20/21 22:41 Consult Physician Routine Consulting Provider: Kaci Shen Consult Reason/Comments: PE Do you want consulting provider notified?: Yes 03/21/21 11:09 Consult Physician Routine Consulting Provider: Justina Merida Consult Reason/Comments: pulmonary emboli Do you want consulting provider notified?: Yes Primary care physician: Barry Navarro Hospital Course: HISTORY OF PRESENT ILLNESS: This is a 36-year-old male with no primary medical history he was hospitalized in [facility] for COVID-19 pneumonia and he was discharged on 04/11/2021 he was supposed to go back to work at [employer] however he showed up to my office yesterday in the afternoon for a clearance to go back to work hopefully on Tuesday however the patient was hypotensive extremely short of breath tachycardic twelve-lead EKG my office showed sinus tachycardia with hyperacute T waves in the anterior leads, his oxygen saturation was around 88% on room air, got worse with activity to 85%, patient was directed to the emergency department at [facility] I spoke with the ER physician alerted him to the patient condition and he is likely to have a pulmonary embolism due to his recent COVID-19 infection patient was seen in the ER 4 hours later and he had a twelve-lead EKG as well as laboratory evaluation and a CTA of the chest that was positive for multiple pulmonary emboli in the right upper lobes and the lower lobes, patient was started on heparin drip, he was admitted to the hospital for evaluation bipolar medicine, echogram was obtained for evaluation of fractured restrained pattern, patient continues to be positive for COVID-19, he was placed in droplet precautions with eye protection, patient was started also on vitamin D 1000 units once every day, vitamin C 500 mg orally twice every day and 6 sulfate 220 mg orally once every day was also started on Decadron 6 but gram IV push every day along with IV antibiotic in the form of Rocephin 1 g IV piggyback every 24 hours and Zithromax 500 mg IV piggyback every 24 hours. 03/22: Patient sitting up in bed in no apparent distress, he denies any chest pain or shortness breath, he has no coughing or hemoptysis at this time, he feels a lot better, he was seen and cleared by pulmonary as well as by vascular surgery. He was switched to oral Eliquis and he is to be discharged from hospital follow-up with me as an outpatient 1 week. Discharge Diagnoses: 1. COVID-19 pneumonia. 2. Right upper lobe and lower lobe pulmonary emboli. 3. Sinus tachycardia likely related to pulmonary emboli and COVID-19 pneumonia. 4. Right lower extremity pain below suffered was negative for DVT. 5. Leukocytosis. Patient Condition at Discharge: Fair Plan - Discharge Summary New Discharge Prescriptions: New Apixaban [Eliquis Starter Pack (for VTE)] 5 - 10 mg PO DIRECTED 30 Days #1 each No Action Cholecalciferol (Vitamin D3) [Vitamin D3 (125 MCG = 5,000 IU)] 125 mcg PO DAILY Albuterol Sulfate [Proair Hfa] 2 puff INHALATION RT-QID PRN PRN Reason: Shortness Of Breath Zinc 50 mg PO DAILY Vitamin B Complex 1 cap PO DAILY Ascorbic Acid [Vitamin C] 1,000 mg PO DAILY Discharge Medication List Albuterol Sulfate [Proair Hfa] 2 puff INHALATION RT-QID PRN 03/20/21 [History] Ascorbic Acid [Vitamin C] 1,000 mg PO DAILY 03/20/21 [History] Cholecalciferol (Vitamin D3) [Vitamin D3 (125 MCG = 5,000 IU)] 125 mcg PO DAILY 03/20/21 [History] Vitamin B Complex 1 cap PO DAILY 03/20/21 [History] Zinc 50 mg PO DAILY 03/20/21 [History] Apixaban [Eliquis Starter Pack (for VTE)] 5 - 10 mg PO DIRECTED 30 Days #1 each 03/22/21 [Rx] Follow up Appointment(s)/Referral(s): Kaci Shen MD [STAFF PHYSICIAN] - 10 Days Barry Navarro MD [Primary Care Provider] - 1-2 days
[2021-03-22 13:08] VITALS: BP 123/72; PULSE 100
[2021-03-22] MEDS ORDERED: APIXABAN 5 MG TAB PO SCH (13:30)
--- NOTE | 2021-03-22 14:20 | P.PN ---
Subjective Progress Note Date: 03/22/21 Principal diagnosis: Acute pulmonary embolism secondary to recent COVID-19 infection This is a very pleasant 36-year-old male patient who follows with Dr. Navarro is his primary care provider. No significant medical history. He is a nonsmoker. Occasional marijuana use. Occasional alcohol use. He had developed symptoms of COVID-19 back on 03/01/2021 and tested positive on 03/03/2021. He initially started with sinus congestion and ALLERGIES which developed into to fatigue and eventually fevers nausea diarrhea. He ended up in [facility] where he was working for 5 days. He was initially given monoclonal antibodies, he was also given Remdesivir for 5 days. Subsequently discharged home. He was seen by his PCP yesterday who found the patient hypoxic with O2 saturations in the 80s yesterday. He also had complaints of right lower extremity edema. He was sent to the ER for the same. Doppler was negative for DVT. Chest x-ray showed evidence of multifocal pneumonia. CT angiogram did reveal evidence of multiple emboli right upper lobe and right lower lobe pulmonary arteries. There is patchy bilateral interstitial pneumonia. Mild splenomegaly. Fatty infiltration of the liver. White count 9.7. Hemoglobin 14.6. Platelet count 242. Lymphocytes 0.9. Sodium 135. Potassium 5.1. Bicarb 18. Creatinine 0.74. D- dimer 1.44. AST 53, ALT 86. Cintron virus positive. He was initiated on a heparin drip. He is seen today in consultation in the emergency room. He is currently sitting up in bed. Awake and alert in no acute distress. No worsening shortness of breath cough or congestion. No chest pain. No hemoptysis. Maintaining O2 saturations in the mid 90s on room air. He's afebrile. Hemodynamically stable. Reevaluated today on 03/22/2021, patient is very comfortable, not in distress, he is on room air, echocardiogram showed no evidence of right ventricular strain, patient will be transitioned to Eliquis , and we'll plan to clear the patient to go home today. Patient should remain on Eliquis for at least 3 months, and possibly 6 months. Depending on his overall clinical status and tolerance to the treatment. Objective - Vital Signs Vital signs: Vital Signs Temp 97.9 F 03/22/21 08:16 Pulse 100 03/22/21 08:16 Resp 18 03/22/21 08:16 BP 123/72 03/22/21 08:16 Pulse Ox 94 L 03/22/21 08:16 Intake & Output 03/21/21 03/22/21 03/22/21 18:59 06:59 18:59 Intake Total 380.415 250 480 Output Total 2 Balance 380.415 248 480 Weight 119.295 kg 118.5 kg Intake: Intake, IV Titration 200.415 250 Amount Heparin Sod,Pork in 0.45% 200.415 250 NaCl 25,000 unit In 0.45 % NaCl 1 250ml.bag @ 18 UNITS/KG/HR 21.473 mls/hr IV .[id number] GHASSAN Rx#: [id number] Oral 180 480 Output: Urine 2 Other: # Voids 1 1 # Bowel Movements 1 - Exam Physical Exam revealed 36-year-old white male in no distress. Head: Atraumatic normocephalic. HEENT:[Neck is supple.] [No neck masses.] [No thyromegaly.] [No JVD.] Chest: [Clear throughout, no crackles, no rhonchi, no wheezes.] Cardiac Exam: [Normal S1 and S2, no S3 gallop, no murmur.] Abdomen: [Soft, nontender, no megaly, no rebound, no guarding, normal bowel sounds.] Extremities: [No clubbing, no edema, no cyanosis.] Neurological Exam: [No focal neurologic deficit.] Psychiatric: Normal mood affect and normal mental status examination. Skin: No rashes. Musculoskeletal: No deformities noted limitation of range of motion - Labs CBC & Chem 7: 03/22/21 07:59 03/22/21 07:59 Labs: Abnormal Lab Results - Last 24 Hours (Table) 03/22/21 03/22/21 03/22/21 Range/Units 07:59 07:59 07:59 WBC 12.0 H (3.8-10.6) k/uL Neutrophils # 9.0 H (1.3-7.7) k/uL APTT 33.3 H (22.0-30.0) sec Glucose 135 H (74-99) mg/dL AST 95 H (17-59) U/L ALT 118 H (4-49) U/L C-Reactive Protein 2.4 H (<1.0) mg/dL Assessment and Plan Assessment: 1 Acute right lung pulmonary emboli secondary to recent COVID-19 infection. Initial diagnosis 03/03/2021. 2 Residual patchy bilateral pneumonia secondary to COVID-19 infection, treated with monoclonal antibodies then Remdesivir in [facility] for 5 days 3 History of marijuana use 4 Former smoker. Recommendation: Patient could be transitioned to Eliquis, must take Eliquis for at least 3-6 months. Patient will be cleared to be discharged home today, Follow-up on outpatient basis. Time with Patient: Less than 30
[2021-03-22] MEDS: ASCORBIC ACID 500 MG TAB PO SCH (14:26)
--- NOTE | 2021-03-25 09:35 | CDI ---
Documentation Clarification Form Date: 03/25/2021 09:29:22 AM From: Levi Kimbrough Admit Date: 03/20/2021 10:46:00 PM Patient Name: Colten Win Visit Number: [id number] Discharge Date: 03/22/2021 03:57:00 PM ATTENTION: The Clinical Documentation Specialists (CDI) and [facility] Coding Staff appreciate your assistance in clarifying documentation. Please respond to the clarification below the line at the bottom and electronically sign. The CDI & [facility] Coding staff will review the response and follow-up if needed. Please note: Queries are made part of the Legal Health Record. If you have any questions, please contact the author of this message via ITS. Dr. Barry Navarro The patient presented with the following clinical indicators. Additional clarification regarding the etiology/cause of the clinical indicators is requested. History/Risk Factors: COVID, COVID PNA, tachycardia, pulmonary embolism Clinical Indicators: ED: WBC: 13 Lactic acid: WNL Blood cultures: N/A Vitals signs: BP 120/80, Temp 100, pulse 120, resp 22 Treatment: dexamethasone, IV heparin ID Consult: Antibiotics: IV abx IV Bolus: In your professional opinion, please clarify if these findings signify one of the following conditions: [ ] Sepsis POA [ ] Sepsis, Not POA [ X ] Sepsis ruled out [ ] Severe Sepsis with organ failure [ ] Septic Shock [ ] SIRS, without underlying infectious process [ ] Other, please specify [ ] Unable to determine SIRS Criteria: 2 or more of the following may indicate SIRS -Temperature < 96.8F (36C) or > 101.0F (38.3C) -Heart Rate > 90 bpm -Respiratory Rate > 20 breaths/min or PaCO2 < 32 mmHg -White Blood Cell Count > 12,000 or < 4,000 cells/mm3 or > 10% bands MTDD
== END 2021-03-22 15:57 | disposition home or self-care (01) | DRG 175 ==
LOC: EC 15:16 → 3SCARD 22:46
PROVIDERS: ADMIT Internal Medicine; ATTEND Internal Medicine
PROC: 8E0ZXY6 Isolation (ICD-10-PCS; principal; 2021-03-20)
PROC: 3E0333Z Introduction of Anti-inflammatory into Peripheral Vein, Percutaneous Approach (ICD-10-PCS; 2021-03-20)
DX: I26.99 Other pulmonary embolism without acute cor pulmonale (principal); U07.1 COVID-19; J12.82 Pneumonia due to coronavirus disease 2019; K76.0 Fatty (change of) liver, not elsewhere classified; R09.02 Hypoxemia; R00.0 Tachycardia, unspecified; F31.9 Bipolar disorder, unspecified; Z79.01 Long term (current) use of anticoagulants; Z82.49 Family history of ischemic heart disease and other diseases of the circulatory system; Z83.3 Family history of diabetes mellitus; Z87.891 Personal history of nicotine dependence
CPT/HCPCS: 36415; 71045; 71275; 80053; 82728; 84145; 84484; 85025; 85379; 85610; 85730; 86140; 87636; 93005; 93306; 94640; 99291

== ENCOUNTER 2023-07-21 18:40 | Emergency (ER) | payer OTHER ==
--- NOTE | 2023-07-21 20:05 | ED ---
General Adult HPI - General Source: patient Mode of arrival: ambulatory Limitations: no limitations <Danilo Frances - Last Filed: 07/22/23 03:33> <Екатерина Morris - Last Filed: 07/23/23 00:06> - General Chief complaint: Abdominal Pain Stated complaint: abd pain Time Seen by Provider: 07/21/23 20:04 - History of Present Illness Initial comments: 38-year-old male presenting with chief complaint of abdominal pain. Pain is present in the left upper quadrant. Has been ongoing for a few weeks. (Danilo Frances) 38-year-old male presents to the emergency department for evaluation of left-si ded abdominal pain. Patient states that the pain is in his left upper abdomen. He states that this has been going on for few weeks but has been getting worse. He does report that it is frequent eating. He does take famotidine. He admits to normal bowel movements and flatulence. Denies fever, chills. Denies nausea, vomiting. (Екатерина Morris) - Related Data Home Medications Medication Instructions Recorded Confirmed Albuterol Sulfate [Proair Hfa] 2 puff INHALATION RT-QID PRN 03/20/21 03/20/21 Ascorbic Acid [Vitamin C] 1,000 mg PO DAILY 03/20/21 03/20/21 Cholecalciferol (Vitamin D3) 125 mcg PO DAILY 03/20/21 03/20/21 [Vitamin D3 (125 MCG = 5,000 IU)] Vitamin B Complex 1 cap PO DAILY 03/20/21 03/20/21 Zinc 50 mg PO DAILY 03/20/21 03/20/21 Previous Rx's Medication Instructions Recorded Apixaban [Eliquis Starter Pack 5 - 10 mg PO DIRECTED 30 Days 03/22/21 (for VTE)] #1 each Pantoprazole [Protonix] 40 mg PO DAILY #14 tab 07/22/23 Allergies Allergy/AdvReac Type Severity Reaction Status Date / Time No Known Allergies Allergy Verified 07/21/23 20:05 Review of Systems ROS Other: All systems not noted in ROS Statement are negative. <Danilo Frances - Last Filed: 07/22/23 03:33> ROS Other: All systems not noted in ROS Statement are negative. <Екатерина Morris - Last Filed: 07/23/23 00:06> ROS Statement: Those systems with pertinent positive or pertinent negative responses have been documented in the HPI. Past Medical History Additional Past Medical History / Comment(s): Covid, History of Any Multi-Drug Resistant Organisms: None Reported Past Surgical History: No Surgical Hx Reported Past Anesthesia/Blood Transfusion Reactions: No Reported Reaction Past Psychological History: No Psychological Hx Reported Smoking Status: Vaper Past Alcohol Use History: Occasional Past Drug Use History: Marijuana - Past Family History Father Family Medical History: Diabetes Mellitus, Hyperlipidemia, Hypertension Mother Additional Family Medical History / Comment(s): hypoglycemia, tumors removed from abd. <Danilo Frances - Last Filed: 07/22/23 03:33> General Exam <Danilo Frances - Last Filed: 07/22/23 03:33> Limitations: no limitations General appearance: alert, in no apparent distress Head exam: Present: atraumatic, normocephalic, normal inspection Eye exam: Present: normal appearance, PERRL, EOMI. Absent: scleral icterus, conjunctival injection, periorbital swelling ENT exam: Present: normal exam, mucous membranes moist Neck exam: Present: normal inspection. Absent: tenderness, meningismus, lymphadenopathy Respiratory exam: Present: normal lung sounds bilaterally. Absent: respiratory distress, wheezes, rales, rhonchi, stridor Cardiovascular Exam: Present: regular rate, normal rhythm, normal heart sounds. Absent: systolic murmur, diastolic murmur, rubs, gallop, clicks GI/Abdominal exam: Present: soft, normal bowel sounds. Absent: distended, tenderness, guarding, rebound, rigid Extremities exam: Present: normal inspection, full ROM, normal capillary refill. Absent: tenderness, pedal edema, joint swelling, calf tenderness Back exam: Present: normal inspection Neurological exam: Present: alert, oriented X3 Psychiatric exam: Present: normal affect, normal mood Skin exam: Present: warm, dry, intact, normal color. Absent: rash <Екатерина Morris - Last Filed: 07/23/23 00:06> - General Exam Comments Initial Comments: Visual Physical Exam Vital signs reviewed General: Well-appearing, nontoxic, no acute distress. Head: Normocephalic, atraumatic Eyes: PERRLA, EOMI ENT: Airway patent Chest: Nonlabored breathing Skin: No visual rash, normal skin tone Neuro: Alert and oriented 3 Musculoskeletal: No gross abnormalities (Danilo Frances) Course Vital Signs 07/21/23 07/22/23 20:03 00:17 Temperature 99.1 F 98.7 F Pulse Rate 84 90 Respiratory 20 18 Rate Blood Pressure 146/113 131/89 O2 Sat by Pulse 99 99 Oximetry Medical Decision Making - Lab Data Result diagrams: 07/21/23 20:48 07/21/23 20:48 <Danilo Frances - Last Filed: 07/22/23 03:33> - Lab Data Result diagrams: 07/21/23 20:48 07/21/23 20:48 <Екатерина Morris - Last Filed: 07/23/23 00:06> - Medical Decision Making I performed the quick note portion of this visit, electronically signed Danilo Frances PA-C (Danilo Frances) Was pt. sent in by a medical professional or institution (ANDREW Rouse, PHOTOGRAPHY SPOTTER, urgent care, hospital, or [facility]...) When possible be specific @ -No Did you speak to anyone other than the patient for history (EMS, parent, family, police, friend...)? What history was obtained from this source @ -No Did you review nursing and triage notes (agree or disagree)? Why? @ -I reviewed and agree with nursing and triage notes Were old charts reviewed (outside hosp., previous admission, EMS record, old EKG, old radiological studies, urgent care reports/EKG's, [facility] records)? Report findings @ -No old charts were reviewed Differential Diagnosis (chest pain, altered mental status, abdominal pain women, abdominal pain men, vaginal bleeding, weakness, fever, dyspnea, syncope, headache, dizziness, GI bleed, back pain, seizure, CVA, palpatations, mental health, musculoskeletal)? @ -Differential Abdominal Pain Men: Appendicitis, cholecystitis, diverticulosis, ischemic bowel, pancreatitis, hepatitis, UTI, gastroenteritis, AAA, incarcerated hernia, bowel obstruction, constipation, inflammatory bowel, hepatitis, peptic ulcer disease, splenic infarction, perforated viscus, testicular torsion, this is not meant to be an al l-inclusive list EKG interpreted by me (3pts min.). @ -EKG at 2235 shows sinus rhythm rate 70, CT 153, QRS 97, QTQTc [id number] X-rays interpreted by me (1pt min.). @ -None done CT interpreted by me (1pt min.). @ -None done U/S interpreted by me (1pt. min.). @ -None done What testing was considered but not performed or refused? (CT, X-rays, U/S, labs)? Why? @ -None What meds were considered but not given or refused? Why? @ -None Did you discuss the management of the patient with other professionals (professionals i.e. , PA, PHOTOGRAPHY SPOTTER, lab, RT, psych nurse, healthcare social worker, crew leader, teacher, chief mechanical officer, renal case manager)? Give summary @ -No Was smoking cessation discussed for >3mins.? @ -No Was critical care preformed (if so, how long)? @ -No Were there social determinants of health that impacted care today? How? (Homelessness, low income, unemployed, alcoholism, drug addiction, transport ation, low edu. Level, literacy, decrease access to med. care, alf, rehab)? @ -No Was there de-escalation of care discussed even if they declined (Discuss DNR or withdrawal of care, Hospice)? DNR status @ -No What co-morbidities impacted this encounter? (DM, HTN, Smoking, COPD, CAD, Cancer, CVA, ARF, Chemo, Hep., AIDS, mental health diagnosis, sleep apnea, morbid obesity)? @ -None Was patient admitted / discharged? Hospital course, mention meds given and route, prescriptions, significant lab abnormalities, going to OR and other pertinent info. @ -Discharged . Patient presented to the emergency department for evaluation of left-sided upper abdominal pain. Patient did not want anything for pain on initial evaluation. Laboratory studies obtained. CBC unremarkable, negative D- dimer at 0.35; CMP shows sodium 141, potassium 4.1; lactic acid 2.4 likely slightly elevated due to mild dehydration, mild transaminitis, normal lipase of 132; UA shows 1+ protein, 13 hyaline cast. Discussed findings with patient and advised adding a PPI, follow up with PCP and GI if persistent. Patient unde rstanding and agreeable with plan. Patient stable at time of discharge. Case discussed with Dr. Hanks. Undiagnosed new problem with uncertain prognosis? @ -No Drug Therapy requiring intensive monitoring for toxicity (Heparin, Nitro, Insulin, Cardizem)? @ -No Were any procedures done? @ -No Diagnosis/symptom? @ -Gastritis Acute, or Chronic, or Acute on Chronic? @ -acute Uncomplicated (without systemic symptoms) or Complicated (systemic symptoms)? @ -uncomplicated Side effects of treatment? @ -No Exacerbation, Progression, or Severe Exacerbation? @ -No Poses a threat to life or bodily function? How? (Chest pain, USA, DC, pneumonia, PE, COPD, DKA, ARF, appy, cholecystitis, CVA, Diverticulitis, Homicidal, Suicidal, threat to staff... and all critical care pts) @ -No (Екатерина Morris) - Lab Data Lab Results 07/21/23 07/21/23 07/21/23 Range/Units 20:48 20:48 20:48 WBC 6.5 (3.8-10.6) k/uL RBC 5.62 (4.30-5.90) m/uL Hgb 16.7 (13.0-17.5) gm/dL Hct 48.3 (39.0-53.0) % MCV 86.0 (80.0-100.0) fL MCH 29.8 (25.0-35.0) pg MCHC 34.6 (31.0-37.0) g/dL RDW 12.8 (11.5-15.5) % Plt Count 248 (150-450) k/uL MPV 7.6 Neutrophils % 52 % Lymphocytes % 36 % Monocytes % 6 % Eosinophils % 3 % Basophils % 1 % Neutrophils # 3.4 (1.3-7.7) k/uL Lymphocytes # 2.3 (1.0-4.8) k/uL Monocytes # 0.4 (0-1.0) k/uL Eosinophils # 0.2 (0-0.7) k/uL Basophils # 0.1 (0-0.2) k/uL PT (10.0-12.5) sec INR (<1.2) APTT (22.0-30.0) sec D-Dimer (<0.60) mg/L FEU Sodium 141 (137-145) mmol/L Potassium 4.1 (3.5-5.1) mmol/L Chloride 103 (98-107) mmol/L Carbon Dioxide 27 (22-30) mmol/L Anion Gap 11 mmol/L BUN 13 (9-20) mg/dL Creatinine 0.91 (0.66-1.25) mg/dL Est GFR (CKD-EPI)AfAm >90 (>60 ml/min/1.73 sqM) Est GFR (CKD-EPI)NonAf >90 (>60 ml/min/1.73 sqM) Glucose 101 H (74-99) mg/dL Lactic Ac Sepsis Rflx Plasma Lactic Acid Gustabo (0.7-2.0) mmol/L Calcium 9.8 (8.4-10.2) mg/dL Total Bilirubin 0.8 (0.2-1.3) mg/dL AST 93 H (17-59) U/L ALT 169 H (4-49) U/L Alkaline Phosphatase 58 (38-126) U/L Troponin I (0.000-0.034) ng/mL Total Protein 8.3 H (6.3-8.2) g/dL Albumin 5.3 H (3.5-5.0) g/dL Amylase 59 (30-110) U/L Lipase 132 (23-300) U/L Urine Color Light Yellow Urine Appearance Clear (Clear) Urine pH 6.0 (5.0-8.0) Ur Specific Brandon 1.012 (1.001-1.035) Urine Protein 1+ H (Negative) Urine Glucose (UA) Negative (Negative) Urine Ketones Negative (Negative) Urine Blood Negative (Negative) Urine Nitrite Negative (Negative) Urine Bilirubin Negative (Negative) Urine Urobilinogen <2.0 (<2.0) mg/dL Ur Leukocyte Esterase Negative (Negative) Urine RBC 1 (0-5) /hpf Urine WBC 1 (0-5) /hpf Ur Squamous Epith Cells <1 (0-4) /hpf Amorphous Sediment Rare H (None) /hpf Hyaline Casts 13 H (0-2) /lpf Urine Mucus Rare H (None) /hpf 07/21/23 07/21/23 07/21/23 Range/Units 21:04 22:02 22:40 WBC (3.8-10.6) k/uL RBC (4.30-5.90) m/uL Hgb (13.0-17.5) gm/dL Hct (39.0-53.0) % MCV (80.0-100.0) fL MCH (25.0-35.0) pg MCHC (31.0-37.0) g/dL RDW (11.5-15.5) % Plt Count (150-450) k/uL MPV Neutrophils % % Lymphocytes % % Monocytes % % Eosinophils % % Basophils % % Neutrophils # (1.3-7.7) k/uL Lymphocytes # (1.0-4.8) k/uL Monocytes # (0-1.0) k/uL Eosinophils # (0-0.7) k/uL Basophils # (0-0.2) k/uL PT 11.0 (10.0-12.5) sec INR 1.0 (<1.2) APTT 18.6 L (22.0-30.0) sec D-Dimer 0.35 (<0.60) mg/L FEU Sodium (137-145) mmol/L Potassium (3.5-5.1) mmol/L Chloride (98-107) mmol/L Carbon Dioxide (22-30) mmol/L Anion Gap mmol/L BUN (9-20) mg/dL Creatinine (0.66-1.25) mg/dL Est GFR (CKD-EPI)AfAm (>60 ml/min/1.73 sqM) Est GFR (CKD-EPI)NonAf (>60 ml/min/1.73 sqM) Glucose (74-99) mg/dL Lactic Ac Sepsis Rflx Y Plasma Lactic Acid Gustabo 2.4 H* (0.7-2.0) mmol/L Calcium (8.4-10.2) mg/dL Total Bilirubin (0.2-1.3) mg/dL AST (17-59) U/L ALT (4-49) U/L Alkaline Phosphatase (38-126) U/L Troponin I (0.000-0.034) ng/mL Total Protein (6.3-8.2) g/dL Albumin (3.5-5.0) g/dL Amylase (30-110) U/L Lipase (23-300) U/L Urine Color Urine Appearance (Clear) Urine pH (5.0-8.0) Ur Specific Brandon (1.001-1.035) Urine Protein (Negative) Urine Glucose (UA) (Negative) Urine Ketones (Negative) Urine Blood (Negative) Urine Nitrite (Negative) Urine Bilirubin (Negative) Urine Urobilinogen (<2.0) mg/dL Ur Leukocyte Esterase (Negative) Urine RBC (0-5) /hpf Urine WBC (0-5) /hpf Ur Squamous Epith Cells (0-4) /hpf Amorphous Sediment (None) /hpf Hyaline Casts (0-2) /lpf Urine Mucus (None) /hpf 07/21/23 Range/Units 22:40 WBC (3.8-10.6) k/uL RBC (4.30-5.90) m/uL Hgb (13.0-17.5) gm/dL Hct (39.0-53.0) % MCV (80.0-100.0) fL MCH (25.0-35.0) pg MCHC (31.0-37.0) g/dL RDW (11.5-15.5) % Plt Count (150-450) k/uL MPV Neutrophils % % Lymphocytes % % Monocytes % % Eosinophils % % Basophils % % Neutrophils # (1.3-7.7) k/uL Lymphocytes # (1.0-4.8) k/uL Monocytes # (0-1.0) k/uL Eosinophils # (0-0.7) k/uL Basophils # (0-0.2) k/uL PT (10.0-12.5) sec INR (<1.2) APTT (22.0-30.0) sec D-Dimer (<0.60) mg/L FEU Sodium (137-145) mmol/L Potassium (3.5-5.1) mmol/L Chloride (98-107) mmol/L Carbon Dioxide (22-30) mmol/L Anion Gap mmol/L BUN (9-20) mg/dL Creatinine (0.66-1.25) mg/dL Est GFR (CKD-EPI)AfAm (>60 ml/min/1.73 sqM) Est GFR (CKD-EPI)NonAf (>60 ml/min/1.73 sqM) Glucose (74-99) mg/dL Lactic Ac Sepsis Rflx Plasma Lactic Acid Gustabo (0.7-2.0) mmol/L Calcium (8.4-10.2) mg/dL Total Bilirubin (0.2-1.3) mg/dL AST (17-59) U/L ALT (4-49) U/L Alkaline Phosphatase (38-126) U/L Troponin I <0.012 (0.000-0.034) ng/mL Total Protein (6.3-8.2) g/dL Albumin (3.5-5.0) g/dL Amylase (30-110) U/L Lipase (23-300) U/L Urine Color Urine Appearance (Clear) Urine pH (5.0-8.0) Ur Specific Brandon (1.001-1.035) Urine Protein (Negative) Urine Glucose (UA) (Negative) Urine Ketones (Negative) Urine Blood (Negative) Urine Nitrite (Negative) Urine Bilirubin (Negative) Urine Urobilinogen (<2.0) mg/dL Ur Leukocyte Esterase (Negative) Urine RBC (0-5) /hpf Urine WBC (0-5) /hpf Ur Squamous Epith Cells (0-4) /hpf Amorphous Sediment (None) /hpf Hyaline Casts (0-2) /lpf Urine Mucus (None) /hpf Disposition <Danilo Frances - Last Filed: 07/22/23 03:33> Is patient prescribed a controlled substance at d/c from ED?: No <Екатерина oMrris - Last Filed: 07/23/23 00:06> Clinical Impression: Gastritis Disposition: HOME SELF-CARE Condition: Stable Instructions (If sedation given, give patient instructions): Acute Abdominal Pa in (ED), Gas and Bloating (ED) Additional Instructions: Please follow up with your primary care provider. Return to the emergency department for new or worsening symptoms. Prescriptions: Pantoprazole [Protonix] 40 mg PO DAILY #14 tab Referrals: Barry Navarro MD [Primary Care Provider] - 1-2 days
[2023-07-21 21:04] LABS: Basophils # (A) 0.1 k/uL (0-0.2); Basophils % (A) 1 %; Eosinophils # (A) 0.2 k/uL (0-0.7); Eosinophils % (A) 3 %; HCT 48.3 % (39.0-53.0); HGB 16.7 gm/dL (13.0-17.5); Lymphocytes # (A) 2.3 k/uL (1.0-4.8); Lymphocytes % (A) 36 %; MCH 29.8 pg (25.0-35.0); MCHC 34.6 g/dL (31.0-37.0); Mean Platelet Volume 7.6; Monocytes # (A) 0.4 k/uL (0-1.0); Monocytes % (A) 6 %; Neutrophils # (A) 3.4 k/uL (1.3-7.7); Neutrophils % (A) 52 %; Platelet Count 248 k/uL (150-450); RBC 5.62 m/uL (4.30-5.90); RDW 12.8 % (11.5-15.5); WBC 6.5 k/uL (3.8-10.6)
[2023-07-21 21:44] LABS: ALT 169 U/L (4-49); AST 93 U/L (17-59); African American GFR (CKD) >90 (>60 ml/min/1.73 sqM); Albumin 5.3 g/dL (3.5-5.0); Alkaline Phosphatase 58 U/L (38-126); Amylase 59 U/L (30-110); Anion Gap 11 mmol/L; Blood Urea Nitrogen 13 mg/dL (9-20); Calcium 9.8 mg/dL (8.4-10.2); Carbon Dioxide 27 mmol/L (22-30); Chloride 103 mmol/L (98-107); Glucose 101 mg/dL (74-99); Lipase 132 U/L (23-300); Non-African American GFR(CKD) >90 (>60 ml/min/1.73 sqM); Potassium 4.1 mmol/L (3.5-5.1); Sodium 141 mmol/L (137-145); Total Bilirubin 0.8 mg/dL (0.2-1.3); Total Protein 8.3 g/dL (6.3-8.2)
[2023-07-21] MEDS: SODIUM CHLORIDE 0.9% 1,000 ML IV ONE (22:40)
[2023-07-21 23:08] LABS: Amorphous Sediment,Urine Rare /hpf; Appearance,Urine Clear (Clear); Bilirubin,Urine Negative (Negative); Blood,Urine Negative (Negative); Color,Urine Light Yellow; Glucose,Urine (UA) Negative (Negative); Hyaline Casts,Urine 13 /lpf (0-2); Ketones,Urine Negative (Negative); Leukocyte Esterase,Urine Negative (Negative); Mucus,Urine Rare /hpf; Nitrite,Urine Negative (Negative); Protein,Urine 1+ (Negative); RBC,Urine 1 /hpf (0-5); Specific Gravity,Urine 1.012 (1.001-1.035); Squamous Epithelial Cell,Urine <1 /hpf (0-4); Urobilinogen,Urine <2.0 mg/dL (<2.0); WBC,Urine 1 /hpf (0-5)
[2023-07-21 23:37] LABS: Partial Thromboplastin Time 18.6 sec (22.0-30.0)
[2023-07-22 00:34] VITALS: BP 131/89; PULSE 90; RESP 18; TEMP 98.7
== END 2023-07-22 00:22 | disposition home or self-care (01) ==
LOC: EC 18:40
DX: K29.70 Gastritis, unspecified, without bleeding (principal); F17.290 Nicotine dependence, other tobacco product, uncomplicated; F12.90 Cannabis use, unspecified, uncomplicated; Z86.16 Personal history of COVID-19
CPT/HCPCS: 36415; 80053; 81001; 82150; 83605; 83690; 84484; 85025; 85379; 85610; 85730; 93005; 96360; 99284